=== PATIENT | female | born 1990 | race Caucasian/White ===

== ENCOUNTER 2018-01-18 10:45 | Inpatient (IN) | payer BC ==
[2018-01-18] MEDS ORDERED: METHYLERGONOVINE 0.2 MG INJ IM (11:30)
[2018-01-18] MEDS ORDERED: MISOPROSTOL 200 MCG TAB PR (11:30)
[2018-01-18] MEDS ORDERED: BUTORPHANOL 2 MG INJ IV (11:30)
[2018-01-18] MEDS ORDERED: CARBOPROST 250 MCG INJ IM (11:30)
[2018-01-18] MEDS ORDERED: OXYTOCIN 30 UNITS/LR 500 ML IV ×2 (11:30→14:00)
[2018-01-18] MEDS: LACTATED RINGER'S 1,000 ML IV* ×3 (11:42→21:48)
[2018-01-18 12:02] LABS: ADD MAN DIFF? NO
[2018-01-18 12:16] LABS: BASOPHIL # 0.1 10^3/ul (0.0-0.1); BASOPHILS % 0.5 % (0.0-2.0); EOSINOPHILS # 0.3 10^3/ul (0.0-0.5); HEMATOCRIT 38.8 % (37.0-47.0); HEMOGLOBIN 12.6 g/dl (12.0-16.0); LYMPHOCYTES # 1.9 10^3/ul (0.8-2.9); LYMPHOCYTES % 15.3 % (15.0-51.0); MEAN CORPUSCULAR HEMOGLOBIN 28.7 pg (29.0-33.0); MEAN CORPUSCULAR HGB CONC 32.5 g/dl (32.0-37.0); MEAN CORPUSCULAR VOLUME 88.4 fl (82.0-101.0); MEAN PLATELET VOLUME 10.9 fl (7.4-10.4); MONOCYTE # 0.7 10^3/ul (0.3-0.9); MONOCYTES % 5.8 % (0.0-11.0); NEUTROPHIL # 9.5 10^3/ul (1.6-7.5); NEUTROPHILS % 75.8 % (39.0-77.0); PLATELET COUNT 259 10^3/UL (140-415); RED BLOOD COUNT 4.39 10^6/ul (4.20-5.40); RED CELL DISTRIBUTION WIDTH 13.9 % (11.5-14.5)
[2018-01-18 12:16] LABS: WHITE BLOOD COUNT 12.6 10^3/ul (4.8-10.8)
[2018-01-18 12:25] LABS: INR 0.91; PARTIAL THROMBOPLASTIN TIME 29.2 Sec (23.0-35.0); PROTIME 12.3 Sec (11.9-14.9)
[2018-01-18 13:17] LABS: HEPATITIS B SURFACE ANTIGEN NEGATIVE (NEGATIVE)
[2018-01-18] MEDS: OXYTOCIN 30 UNITS/LR 500 ML IV (14:36)
[2018-01-18 22:30] LABS: RAPID PLASMA REAGIN NONREACTIVE (NR)
[2018-01-18] MEDS ORDERED: ONDANSETRON 4 MG INJ IV (23:00)
[2018-01-18] MEDS ORDERED: NALOXONE (0.4 MG/ML) INJ IV (23:00)
[2018-01-18] MEDS ORDERED: DIPHENHYDRAMINE 50 MG INJ IV (23:00)
[2018-01-19] MEDS: LACTATED RINGER'S 1,000 ML IV* ×4 (01:52→20:57)
[2018-01-19] MEDS: FENTAnyl 2MCG/ML-ROPIV 0.2% 100 ML BAG EPI (04:44)
[2018-01-19] MEDS: OXYTOCIN 30 UNITS/LR 500 ML IV ×2 (04:49→09:00)
[2018-01-19] MEDS ORDERED: OXYTOCIN 30 UNITS/LR 500 ML IV (05:00)
[2018-01-19] MEDS ORDERED: CARBOPROST 250 MCG INJ IM (05:00)
[2018-01-19] MEDS ORDERED: METHYLERGONOVINE 0.2 MG INJ IM (05:00)
[2018-01-19] MEDS ORDERED: HYDROCODONE/APAP (5/325) TAB PO (05:00)
[2018-01-19] MEDS ORDERED: MISOPROSTOL 200 MCG TAB PR (05:00)
[2018-01-19] MEDS: LIDOCAINE 0.5% (SDV) 50 ML INJ INFIL (05:09)
[2018-01-19] MEDS: MINERAL OIL LIGHT 10 ML VIAL TOP (05:10)
[2018-01-19] MEDS: WITCH HAZEL/GLYCERIN PAD PR (10:07)
[2018-01-19] MEDS: LANOLIN 7 GM TUBE TOP (10:07)
[2018-01-19] MEDS: BENZOCAINE 20% 56 ML SPRAY TOP (10:07)
[2018-01-19] MEDS: IBUPROFEN 600 MG TAB PO ×3 (11:21→17:41)
[2018-01-20] MEDS: IBUPROFEN 600 MG TAB PO ×3 (00:20→11:46)
[2018-01-20 07:52] LABS: ADD MAN DIFF? NO
[2018-01-20 08:05] LABS: BASOPHIL # 0.1 10^3/ul (0.0-0.1); BASOPHILS % 0.5 % (0.0-2.0); EOSINOPHILS # 0.4 10^3/ul (0.0-0.5); EOSINOPHILS % 3.3 % (0.0-7.0); HEMATOCRIT 34.3 % (37.0-47.0); HEMOGLOBIN 11.1 g/dl (12.0-16.0); LYMPHOCYTES # 2.5 10^3/ul (0.8-2.9); LYMPHOCYTES % 20.9 % (15.0-51.0); MEAN CORPUSCULAR HEMOGLOBIN 28.7 pg (29.0-33.0); MEAN CORPUSCULAR HGB CONC 32.4 g/dl (32.0-37.0); MEAN CORPUSCULAR VOLUME 88.6 fl (82.0-101.0); MEAN PLATELET VOLUME 10.4 fl (7.4-10.4); MONOCYTE # 0.9 10^3/ul (0.3-0.9); MONOCYTES % 7.1 % (0.0-11.0); NEUTROPHIL # 8.1 10^3/ul (1.6-7.5); NEUTROPHILS % 67.5 % (39.0-77.0); PLATELET COUNT 261 10^3/UL (140-415); RED BLOOD COUNT 3.87 10^6/ul (4.20-5.40); RED CELL DISTRIBUTION WIDTH 14.3 % (11.5-14.5)
[2018-01-20] MEDS: IBUPROFEN 200 MG TAB PO ×2 (18:37→23:38)
[2018-01-21] MEDS: IBUPROFEN 200 MG TAB PO ×2 (05:48→11:50)
[2018-01-21] MEDS: DIPHTH/TET/ACEL PERTUSS (ADULT) 0.5 ML VIAL IM* (10:45)
== END 2018-01-21 13:25 | disposition home or self-care (01) | DRG 807 ==
LOC: PP1 01-19 07:44 → L-D 10:45 → PP1 01-19 16:00
PROVIDERS: Obstetrics & Gynecology
PROC: 10E0XZZ Delivery of Products of Conception, External Approach (ICD-10-PCS; principal; 2018-01-18)
PROC: 0KQM0ZZ Repair Perineum Muscle, Open Approach (ICD-10-PCS; 2018-01-18)
PROC: 3E033VJ Introduction of Other Hormone into Peripheral Vein, Percutaneous Approach (ICD-10-PCS; 2018-01-18)
DX: O70.1 Second degree perineal laceration during delivery (principal); Z37.0 Single live birth; Z3A.39 39 weeks gestation of pregnancy
CPT/HCPCS: 62319; 76815; 85025; 85610; 85730; 86592; 86850; 86900; 86901; 87340; 90715